=== PATIENT | female | born 1960 | race Caucasian/White ===

== ENCOUNTER → 2023-03-18 09:32 | Outpatient (REF) | payer OTHER, SELFPAY | LOC: WDC 09:32 | PROVIDERS: ATTENDING PHYSICIAN Surgery | DX: C50.412 Malignant neoplasm of upper-outer quadrant of left female breast (principal) | CPT/HCPCS: 19285; 38792; 76942; 77065; A4648; A9541 ==

== ENCOUNTER 2023-03-19 09:22 | Day surgery (SDC) | payer OTHER, SELFPAY ==
[2023-03-15 09:18] VITALS: BMI 25.4
[2023-03-19] VITALS (14 sets, daily range): BP systolic 81–127; BP diastolic 48–81; BMI 25.4
[2023-03-19] MEDS: TYLENOL 1000 MG PO (09:28)
[2023-03-19] MEDS: NORMOSOL-R 1000 IV (09:29)
--- NOTE | 2023-03-19 11:59 | W.IMMPOSTOP ---
Surgical Immed Post Op Note
-
Primary Surgeon: Zachary
Assisting Surgeon: None
Pre-op Diagnosis: Left breast ca
Post-op Diagnosis: Same
Procedure Performed: Left localized lumpectomy and sentinel node mapping and biopsy
Anesthesia Type: General LMA
Specimen / Cultures: Stringer nodes, lumpectomy, margins
Estimated Blood Loss: 10cc
Complications: None
Operative Findings: Neg nodes
Stringer Node Bx Breast Cancer
Stringer Node Bx Breast Cancer
Operation performed with curative intent: Yes
Tracer(s) to ID Stringer Nodes in Non-Neoadjuvant setting: Radioactive Tracer
Tracer(s) to ID Sentinal Nodes in the Neoadjuvant Setting: N/A
All nodes at end of dye-filled Lymphatic Channel removed: N/A
All Significantly Radioactive Nodes were removed: Yes
All Palpably Suspicious Nodes were Removed: Yes
Bx Proven Pos Nodes Marked Prior to Chemo ID'd & Removed: N/A
[2023-03-19] MEDS: LR 500 IV (12:15)
--- NOTE | 2023-03-19 12:19 | SUR.PHASEI ---
Patient hypotensive in PACU, 'dizzy' Dr Vega informed, Fluid bolus ordered. Taylor Trevino RN BSN.
== END 2023-03-19 14:11 | disposition home or self-care (01) ==
LOC: SDS 09:22
PROVIDERS: ATTENDING PHYSICIAN Surgery; FAMILY PHYSICIAN Family Medicine
DX: C50.412 Malignant neoplasm of upper-outer quadrant of left female breast (principal)
CPT/HCPCS: 38525; 19301; 88305; 88307; 88332; 36415; 76098; 88331; 88333; 88341; 88342; 93005; A4648; C1729

== ENCOUNTER 2023-06-23 11:20 | Outpatient (RCR) | payer OTHER, SELFPAY | END 2023-06-23 23:59 | disposition home or self-care (01) | LOC: RPT 11:20 | PROVIDERS: ATTENDING PHYSICIAN Family Medicine Geriatric Medicine; FAMILY PHYSICIAN Family Medicine | DX: M25.612 Stiffness of left shoulder, not elsewhere classified (principal); C50.412 Malignant neoplasm of upper-outer quadrant of left female breast; Z17.0 Estrogen receptor positive status [ER+]; Z73.6 Limitation of activities due to disability | CPT/HCPCS: 97110; 97162; 97530 ==

== ENCOUNTER 2023-07-30 09:30 | Outpatient (RCR) | payer OTHER, SELFPAY | END 2023-07-30 23:59 | disposition home or self-care (01) | LOC: RPT 09:30 | PROVIDERS: ATTENDING PHYSICIAN Family Medicine Geriatric Medicine; FAMILY PHYSICIAN Family Medicine | DX: C50.412 Malignant neoplasm of upper-outer quadrant of left female breast (principal); M25.612 Stiffness of left shoulder, not elsewhere classified; Z17.0 Estrogen receptor positive status [ER+]; Z73.6 Limitation of activities due to disability | CPT/HCPCS: 97110; 97140; 97530 ==

== ENCOUNTER 2023-09-30 15:09 | Outpatient (RCR) | payer OTHER, SELFPAY | END 2023-09-30 23:59 | disposition home or self-care (01) | LOC: RPT 15:09 | PROVIDERS: ATTENDING PHYSICIAN Family Medicine Geriatric Medicine; FAMILY PHYSICIAN Family Medicine | DX: C50.412 Malignant neoplasm of upper-outer quadrant of left female breast (principal); M25.612 Stiffness of left shoulder, not elsewhere classified; Z17.0 Estrogen receptor positive status [ER+]; Z73.6 Limitation of activities due to disability | CPT/HCPCS: 97110; 97140; 97530 ==

== ENCOUNTER → 2024-04-18 11:49 | Outpatient (REF) | payer OTHER, SELFPAY | LOC: WDC 11:49 | PROVIDERS: ATTENDING PHYSICIAN Family Medicine Geriatric Medicine; FAMILY PHYSICIAN Family Medicine | DX: Z12.31 Encounter for screening mammogram for malignant neoplasm of breast (principal); Z12.39 Encounter for other screening for malignant neoplasm of breast | CPT/HCPCS: 77063; 77067 ==